=== PATIENT | female | born 1965 | race Caucasian/White ===

== ENCOUNTER 2016-04-03 21:08 | Emergency (ER) | payer BC ==
[~2016-04-03] VITALS: Ht 165.1 cm; Wt 86.2 kg
[~2016-04-03 21:08] MED LIST: ALBUTEROL0.09 MG/A1 IH; APAP/BUTALBITAL1 TA1 PO; ASPIR 8181 MG PO; BENADRYL 25MG C25 MG PO; BLACK COHOSH40 M1 PO; BYETTA250 MCG/ML SC; CLARITIN 10MG T10 MG PO; Ceftriaxone 1 Gm1 GM IV; DOXYCYCLINE HY100 M3 PO; ESCITALOPRAM10 MG PO; FIORICET 325 MG1 TAB PO; FLEXERIL10 M1 PO; GABAPENTIN100 MG PO; IBU800 M1 PO; INSULIN GL100 UNITS/ SC; LEXAPRO 10 MG T10 MG PO; LISINOPRIL 10MG10 MG PO; LISINOPRIL/HCTZ1 TA3 PO; LYRICA75 MG PO; MEPEREDINE50 MG PO; METFORMIN 500M500 MG PO; METFORMIN HCL1000 MG PO; MOBIC7.5 MG PO; NATURE'S BLEND160 MG PO; NORCO 325 MG-51 TAB PO; NOVOLIN 70/30 710 ML SC; NOVOLOG MIX 70/10 M1 SC; NOVOLOG100 U/ML SC; PANTOPRAZOLE SO40 MG PO; PHENERGAN25 M3 PO; PRAVASTATIN 20M20 MG PO; PREMARIN 0.60.625 MG PO; PROTONIX 40MG T40 MG PO; REGLAN10 M1 PO; REMIFEMIN OR; ROBAXIN 500 MG500 MG PO; SIMVASTATIN20 MG PO; TOPIRAMATE 25MG25 MG PO; TORADOL10 M2 PO; TRAMADOL 50MG T50 MG PO; ZANTAC 300300 MG PO; ZOFRAN ODT4 MG PO; ZOFRAN4 MG PO; ZYRTEC 10MG TAB10 MG PO; [UNRECOGNIZED DRUG - OTHER] PO
[2016-04-03] MEDS ORDERED: JANUMET XR 10001 TE1 PO (21:20)
[2016-04-03] MEDS ORDERED: DICYCLOMINE HCL20 MG PO (21:21)
[2016-04-03] MEDS ORDERED: ESTRACE 2MG. TAB2 MG PO (21:22)
[2016-04-03] MEDS ORDERED: TROKENDI XR50 MG PO (21:22)
[2016-04-03] MEDS ORDERED: VITAMIN D310000 UNIT PO (21:23)
[2016-04-03] MEDS ORDERED: PROMETH-CODEIN 65 ML PO (21:25)
[2016-04-03] MEDS ORDERED: PREDNISONE 20MG20 MG PO (21:25)
[2016-04-03] MEDS ORDERED: LEVAQUIN500 MG PO (21:25)
--- NOTE | 2016-04-03 22:50 | Emergency Room Report ---
History of Present Illness Time Seen by [id number] Presenting Problem in Triage Pt arrived:Walked Presenting Problem:PT STATES THAT SHE HAS HAD A COUGH AND CONGESTION FOR ABOUT 3 WEEKS. PT STATES SHE WENT TO [facility] ON 03/31/16. PT IS CURRENTLY ON LEVAQUIN AND PREDNIESONE. PT HAS NOT SEEN PCP. 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 N Clinical Suspician of Infection? N Mental Status: 1 - Regular (Normal Baseline) Sepsis Risk:Low Sepsis Risk Have you (or family members/close friends) recently traveled outside the [place]? N If Yes, where/when: Have you had exposure to infectious disease within the past month? N TB? Other? 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 over the last 2 weeks has been on septra and now levoquin Cardiac Chest Pain Chest pain indicative of cardiac No Timing/Duration this evening Severity moderate ALLERGIES Coded Allergies: adhesive tape (Intermediate, I-RASH 04/03/16) bupropion (Intermediate, I-HIVES 04/03/16) butorphanol (Intermediate, I-HIVES 04/03/16) calcium (From DHEA) (Intermediate, I-HIVES 04/03/16) calcium carbonate (From DHEA) (Intermediate, I-HIVES 04/03/16) codeine (Intermediate, I-HIVES 04/03/16) hydromorphone (Intermediate, I-HIVES 04/03/16) prasterone (DHEA) (From DHEA) (Intermediate, I-HIVES 04/03/16) sumatriptan (From IMITREX) (Intermediate, I-HIVES 04/03/16) hydrocodone (I-ITCHING 04/03/16) morphine (HEADACHE 04/03/16) ranitidine (I-ITCHING 04/03/16) Home Medications Active Scripts INSULIN ASPART PROTAM & ASPART (Novolog Mix 70-30 Vial) 20 UNITS SC QAM #1 Vial Ref 2 Prov: 01/19/15 Reported Medications Pantoprazole Sodium (Protonix 40MG TAB) 40 MG PO DAILY Pregabalin (Lyrica 75MG) 150 MG PO TID SITAGLIPTIN PHOS/METFORMIN HCL (Janumet XR 50-1,000 MG Tablet) 1 TER PO DAILY #90 Dicyclomine Hcl (Dicyclomine) 20 MG PO AC #270 Topiramate (Trokendi XR) 50 MG PO DAILY #30 Estradiol (Estrace 2MG. Tablet) 2 MG PO DAILY #30 Cholecalciferol (Vitamin D3) (Vitamin D3) 10,000 UNIT PO WEEKLY Levofloxacin (Levaquin 500MG) 500 MG PO DAILY Promethazine HCl/Codeine (Prometh-Codein 6.25-10 MG/5 Ml) 5 ML PO Q6HP PRN COUGH Prednisone (Prednisone 20MG) 20 MG PO DAILY Simvastatin 20 MG PO QHS Escitalopram Oxalate (Lexapro 10MG) 10 MG PO QHS Loratadine (Claritin 10MG) 10 MG PO DAILY INSULIN GLARGINE (Lantus 3ML Solostar Pen) 30 UNITS SC QHS History Medical History General CAD? No Angina: Yes [place]: No Hypertension? Yes Hyperlipidemia? No CHF? No DVT? No PE? No COPD? Yes Asthma? Yes Anemia? No GERD? No Gastric ulcers? No GI Bleed? No Hernia? No Thyroid Problems? No Hypothyroidism? No CVA? No Seizures? No Diabetes? Yes Insulin Dependent: Yes Insulin Pump: No Home FSBS? Yes Renal Insuffiency? No End Stage Renal Disease? No UTI? No Stones? No BPH? No GB Disease: No Nephritic Syndrome? No Asplenia? No Hepatitis? No Sickle Cell Disease? No Arthritis? Yes Migraines? No Cataracts? No Glaucoma? No MRSA? No HIV? No TB? No Anxiety? No Depression? No Cancer? No More? No Immunization Hx DT/Tetanus 1-4 Years Ago Flu 2015-16FSN Pneumonia Refuses Surgical Hx Previous Surgery?Y C SECTION X 2 CARPATUNNEL BILAT. 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 Respiratory cough, denies shortness of breath, denies wheezing Cardiovascular see HPI, chest pain, denies syncope Gastrointestinal denies abdominal pain, denies diarrhea, denies vomiting Genitourinary denies: dysuria, frequency, hesitancy, hematuria. Musculoskeletal denies back pain, denies joint pain, denies joint swelling, denies neck pain Skin denies rash Psychiatric/Neurological denies headache, denies seizure Physical Exam Vital Signs Vital Signs Date Time Temp Pulse Resp B/P Pulse O2 O2 Flow FiO2 Ox Delivery Rate 04/04 0034 102 18 142/75 95 / 2212 87 18 157/71 96 / 2144 91 18 154/56 100 / 2112 98.3 92 18 159/91 100 - WBC >12,000 or <4,000 or 10% bands? 2 or more SIRS Criteria Met? B/P:157/71 MAP:113 Creatinine >2.0? UA output<0.5ml/kg/hr for 2 hrs? Platelet count >100,000? Lactate >2.0mmol/1? INR >1.2 or PTT > than 60 sec? Evidence of Organ Dysfunction? Provider documented clinical suspician of infection? N Sepsis Criteria Count: 1 Sepsis Risk: Low Sepsis Risk General Appearance no apparent distress Eye Exam - bilateral eye PERRL, bilateral eye EOMI Ear, Nose, Throat normal ENT inspection Neck supple Respiratory Status No: respiratory distress. Lung Sounds bilateral: rhonchi. 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 No Results/Orders Laboratory Tests 04/04/16 0047: Influenza Type A Ag NOT DETECTED, Influenza Type B Ag NOT DETECTED 04/04/16 0000: B-Natriuretic Peptide 18 04/03/16 2305: Sodium 134 L, Potassium 4.5, Chloride 101, Carbon Dioxide 26, BUN 12, Creatinine 1.1 H, Estimated Creat Clear 84, Estimated GFR (MDRD) 53 L, Glucose 267 H, Calcium 8.5, Total Bilirubin 0.2, AST 28, ALT 19, Alkaline Phosphatase 85, Creatine Kinase 62, CK-MB (CK-2) Rel Index 0.8, CK and CKMB Interp 0.5, Troponin I < 0.02, Total Protein 6.6, Albumin 2.7 L, Globulin 3.9 H, Albumin/ Globulin Ratio 0.7 L, WBC 8.8, RBC 4.68, Hgb 14.5, Hct 42.6, MCV 91.0, RDW 15.2 , Plt Count 263, MPV 8.5, Gran % 59.5, Gran # 5.2, Lymphocytes % 30.7, Monocytes % 3.9, Eosinophils % 5.4, Basophils % 0.5, Lymphocytes # 2.7, Monocytes # 0.3, Eosinophils # 0.5 H, Basophils # 0.0, PUBS MCHC 34.2, MCH 31.1 Current Medication Orders Sig/Hasmukh Start time Last Medication Dose Route Stop Time Status Admin Albuterol 2 PUFFS ONCE ONE 04/04 0100 DC 04/04 IH 04/04 010 0055 Miscellaneous 1 UNIT ONCE ONE 04/04 0100 DC 04/04 XX 04/04 0101 0058 Albuterol 0 .STK-MED ONE 04/04 0051 DC IH Miscellaneous 0 .STK-MED ONE 04/04 0051 DC XX Albuterol 0 .STK-MED ONE 04/03 2358 DC INH Albuterol 2.5 MG ONCE ONE 04/03 2345 DC 04/03 INH 04/03 2346 2359 Furosemide 40 MG ONCE ONE 04/03 2300 DC 04/03 IV 04/03 2301 2311 Sodium Chloride 10 ML PRN PRN 04/03 2300 AC 04/03 IV 04/04 2250 2311 Furosemide 0 .STK-MED ONE 04/03 2253 DC .ROUTE Orders Procedure Date/time Status RT REQUEST ALBUTEROL INHALER 04/04 45 Active INFLUENZA A&B ANTIGENS 01/03 0046 Complete BRAIN NATRIURETIC PEPTIDE 04/04 0028 Complete RT REQUEST ALBUTEROL NEB 04/03 2346 Active IV SALINE LOCK 04/03 2251 Active COMPLETE METABOLIC PANEL 04/03 225 Complete CBC WITH AUTO DIFF 04/03 2250 Complete CARDIAC ENZYMES 04/03 2250 Complete CHEST(2 VIEWS-NOT PORTABLE) 04/03 2126 Active XRAY/CT/US XRAY/CT/US XRAY chest XR interpretation by reviewed by me Xray Results abnormal (nonspecific) Departure Departure Time of Disposition 37 Disposition DC Home or Self Care(routine) Clinical Impression Primary Impression: Bronchitis Condition STABLE Referrals Kai Lindsay MD (Family) Patient Instructions DI for Cough -- Adult Additional Instructions use meds and see pcp for follow up Discharge Counseling Counseled pt/family regarding diagnosis, test results, medications/RX, follow up needs Prescriptions Current Visit Scripts BENZONATATE (Benzonatate) 100 MG PO TID #15 CAP Azithromycin (Zithromycin (Z-KAUR) 250MG Tab) 250 MG PO DAILY #6 TAB TAKE TWO (2) TABLETS ON DAY 1, THEN ONE (1) TABLET DAY #2 THRU #5 ED Critical Care Critical Care No at 0127
--- NOTE | 2016-04-03 22:50 | Emergency Room Report ---
History of Present Illness Time Seen by [id number] Presenting Problem in Triage Pt arrived:Walked Presenting Problem:PT STATES THAT SHE HAS HAD A COUGH AND CONGESTION FOR ABOUT 3 WEEKS. PT STATES SHE WENT TO [facility] ON 03/31/16. PT IS CURRENTLY ON LEVAQUIN AND PREDNIESONE. PT HAS NOT SEEN PCP. 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 N Clinical Suspician of Infection? N Mental Status: 1 - Regular (Normal Baseline) Sepsis Risk:Low Sepsis Risk Have you (or family members/close friends) recently traveled outside the [place]? N If Yes, where/when: Have you had exposure to infectious disease within the past month? N TB? Other? 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 has been on septra and now levoquin Cardiac Chest Pain Chest pain indicative of cardiac No Timing/Duration this evening Severity moderate ALLERGIES Coded Allergies: adhesive tape (Intermediate, I-RASH 04/03/16) bupropion (Intermediate, I-HIVES 04/03/16) butorphanol (Intermediate, I-HIVES 04/03/16) calcium (From DHEA) (Intermediate, I-HIVES 04/03/16) calcium carbonate (From DHEA) (Intermediate, I-HIVES 04/03/16) codeine (Intermediate, I-HIVES 04/03/16) hydromorphone (Intermediate, I-HIVES 04/03/16) prasterone (DHEA) (From DHEA) (Intermediate, I-HIVES 04/03/16) sumatriptan (From IMITREX) (Intermediate, I-HIVES 04/03/16) hydrocodone (I-ITCHING 04/03/16) morphine (HEADACHE 04/03/16) ranitidine (I-ITCHING 04/03/16) Home Medications Active Scripts INSULIN ASPART PROTAM & ASPART (Novolog Mix 70-30 Vial) 20 UNITS SC QAM #1 Vial Ref 2 Prov: 01/19/15 Reported Medications Pantoprazole Sodium (Protonix 40MG TAB) 40 MG PO DAILY Pregabalin (Lyrica 75MG) 150 MG PO TID SITAGLIPTIN PHOS/METFORMIN HCL (Janumet XR 50-1,000 MG Tablet) 1 TER PO DAILY #90 Dicyclomine Hcl (Dicyclomine) 20 MG PO AC #270 Topiramate (Trokendi XR) 50 MG PO DAILY #30 Estradiol (Estrace 2MG. Tablet) 2 MG PO DAILY #30 Cholecalciferol (Vitamin D3) (Vitamin D3) 10,000 UNIT PO WEEKLY Levofloxacin (Levaquin 500MG) 500 MG PO DAILY Promethazine HCl/Codeine (Prometh-Codein 6.25-10 MG/5 Ml) 5 ML PO Q6HP PRN COUGH Prednisone (Prednisone 20MG) 20 MG PO DAILY Simvastatin 20 MG PO QHS Escitalopram Oxalate (Lexapro 10MG) 10 MG PO QHS Loratadine (Claritin 10MG) 10 MG PO DAILY INSULIN GLARGINE (Lantus 3ML Solostar Pen) 30 UNITS SC QHS History Medical History General CAD? No Angina: Yes [place]: No Hypertension? Yes Hyperlipidemia? No CHF? No DVT? No PE? No COPD? Yes Asthma? Yes Anemia? No GERD? No Gastric ulcers? No GI Bleed? No Hernia? No Thyroid Problems? No Hypothyroidism? No CVA? No Seizures? No Diabetes? Yes Insulin Dependent: Yes Insulin Pump: No Home FSBS? Yes Renal Insuffiency? No End Stage Renal Disease? No UTI? No Stones? No BPH? No GB Disease: No Nephritic Syndrome? No Asplenia? No Hepatitis? No Sickle Cell Disease? No Arthritis? Yes Migraines? No Cataracts? No Glaucoma? No MRSA? No HIV? No TB? No Anxiety? No Depression? No Cancer? No More? No Immunization Hx DT/Tetanus 1-4 Years Ago Flu 2015-16FSN Pneumonia Refuses Surgical Hx Previous Surgery?Y C SECTION X 2 CARPATUNNEL BILAT. 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 Respiratory cough, denies shortness of breath, denies wheezing Cardiovascular see HPI, chest pain, denies syncope Gastrointestinal denies abdominal pain, denies diarrhea, denies vomiting Genitourinary denies: dysuria, frequency, hesitancy, hematuria. Musculoskeletal denies back pain, denies joint pain, denies joint swelling, denies neck pain Skin denies rash Psychiatric/Neurological denies headache, denies seizure Physical Exam Vital Signs Vital Signs Date Time Temp Pulse Resp B/P Pulse O2 O2 Flow FiO2 Ox Delivery Rate 04/04 0034 102 18 142/75 95 / 2212 87 18 157/71 96 / 2144 91 18 154/56 100 / 2112 98.3 92 18 159/91 100 - WBC >12,000 or <4,000 or 10% bands? 2 or more SIRS Criteria Met? B/P:157/71 MAP:113 Creatinine >2.0? UA output<0.5ml/kg/hr for 2 hrs? Platelet count >100,000? Lactate >2.0mmol/1? INR >1.2 or PTT > than 60 sec? Evidence of Organ Dysfunction? Provider documented clinical suspician of infection? N Sepsis Criteria Count: 1 Sepsis Risk: Low Sepsis Risk General Appearance no apparent distress Eye Exam - bilateral eye PERRL, bilateral eye EOMI Ear, Nose, Throat normal ENT inspection Neck supple Respiratory Status No: respiratory distress. Lung Sounds bilateral: rhonchi. 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 No Results/Orders Laboratory Tests 04/04/16 0047: Influenza Type A Ag NOT DETECTED, Influenza Type B Ag NOT DETECTED 04/04/16 0000: B-Natriuretic Peptide 18 04/03/16 2305: Sodium 134 L, Potassium 4.5, Chloride 101, Carbon Dioxide 26, BUN 12, Creatinine 1.1 H, Estimated Creat Clear 84, Estimated GFR (MDRD) 53 L, Glucose 267 H, Calcium 8.5, Total Bilirubin 0.2, AST 28, ALT 19, Alkaline Phosphatase 85, Creatine Kinase 62, CK-MB (CK-2) Rel Index 0.8, CK and CKMB Interp 0.5, Troponin I < 0.02, Total Protein 6.6, Albumin 2.7 L, Globulin 3.9 H, Albumin/ Globulin Ratio 0.7 L, WBC 8.8, RBC 4.68, Hgb 14.5, Hct 42.6, MCV 91.0, RDW 15.2 , Plt Count 263, MPV 8.5, Gran % 59.5, Gran # 5.2, Lymphocytes % 30.7, Monocytes % 3.9, Eosinophils % 5.4, Basophils % 0.5, Lymphocytes # 2.7, Monocytes # 0.3, Eosinophils # 0.5 H, Basophils # 0.0, PUBS MCHC 34.2, MCH 31.1 Current Medication Orders Sig/Hasmukh Start time Last Medication Dose Route Stop Time Status Admin Albuterol 2 PUFFS ONCE ONE 04/04 0100 DC 04/04 IH 04/04 010 0055 Miscellaneous 1 UNIT ONCE ONE 04/04 0100 DC 04/04 XX 04/04 0101 0058 Albuterol 0 .STK-MED ONE 04/04 0051 DC IH Miscellaneous 0 .STK-MED ONE 04/04 0051 DC XX Albuterol 0 .STK-MED ONE 04/03 2358 DC INH Albuterol 2.5 MG ONCE ONE 04/03 2345 DC 04/03 INH 04/03 2346 2359 Furosemide 40 MG ONCE ONE 04/03 2300 DC 04/03 IV 04/03 2301 2311 Sodium Chloride 10 ML PRN PRN 04/03 2300 AC 04/03 IV 04/04 2250 2311 Furosemide 0 .STK-MED ONE 04/03 2253 DC .ROUTE Orders Procedure Date/time Status RT REQUEST ALBUTEROL INHALER 04/04 45 Active INFLUENZA A&B ANTIGENS 01/03 0046 Complete BRAIN NATRIURETIC PEPTIDE 04/04 0028 Complete RT REQUEST ALBUTEROL NEB 04/03 2346 Active IV SALINE LOCK 04/03 2251 Active COMPLETE METABOLIC PANEL 04/03 225 Complete CBC WITH AUTO DIFF 04/03 2250 Complete CARDIAC ENZYMES 04/03 2250 Complete CHEST(2 VIEWS-NOT PORTABLE) 04/03 2126 Active XRAY/CT/US XRAY/CT/US XRAY chest XR interpretation by reviewed by me Xray Results abnormal (nonspecific) Departure Departure Time of Disposition 37 Disposition DC Home or Self Care(routine) Clinical Impression Primary Impression: Bronchitis Condition STABLE Referrals Kai Lindsay MD (Family) Patient Instructions DI for Cough -- Adult Additional Instructions use meds and see pcp for follow up Discharge Counseling Counseled pt/family regarding diagnosis, test results, medications/RX, follow up needs Prescriptions Current Visit Scripts BENZONATATE (Benzonatate) 100 MG PO TID #15 CAP Azithromycin (Zithromycin (Z-KAUR) 250MG Tab) 250 MG PO DAILY #6 TAB TAKE TWO (2) TABLETS ON DAY 1, THEN ONE (1) TABLET DAY #2 THRU #5 ED Critical Care Critical Care No at 0127
[2016-04-03 23:12] LABS: LYMPH # 2.7 K/mm3 (0.7-4.5); LYMPH % 30.7 % (10-50.0)
[2016-04-03 23:15] LABS: HEMOGLOBIN 14.5 g/dL (12.2-16.2)
[2016-04-03 23:37] LABS: BUN 12 mg/dL (7-18)
[2016-04-03 23:38] LABS: GFR (ESTIMATED) 53 ML/MIN (59-)
[2016-04-04] MEDS ORDERED: TESSALON PERLE100 MG PO (01:27)
[2016-04-04] MEDS ORDERED: ZITHROMAX Z PA250 MG PO (01:27)
[2016-04-04 01:37] VITALS: BP 142/75
--- NOTE | 2016-04-04 08:29 | RADIOLOGY REPORT PS360 ---
CHEST(2 VIEWS-NOT PORTABLE) HISTORY: COUGH, CONGESTION COMPARISON: 01/18/2015 FINDINGS: The cardiomediastinal silhouette and pulmonary vascularity are within normal limits. The lungs are clear without infiltrates, suspicious nodules, or pleural effusions. No acute bony abnormalities. IMPRESSION: Negative chest, no acute finding
== END 2016-04-04 01:38 | disposition home or self-care (01) ==
LOC: ER 21:08
PROVIDERS: Emergency Medicine
DX: J20.9 Acute bronchitis, unspecified (principal); I10 Essential (primary) hypertension; E11.65 Type 2 diabetes mellitus with hyperglycemia; Z79.4 Long term (current) use of insulin

== ENCOUNTER → 2016-07-17 | Outpatient (CLI) | payer BC ==
[~2016-07-17] MED LIST changes: +DICYCLOMINE HCL20 MG PO; +ESTRACE 2MG. TAB2 MG PO; +JANUMET XR 10001 TE1 PO; +LEVAQUIN500 MG PO; +PREDNISONE 20MG20 MG PO; +PROMETH-CODEIN 65 ML PO; +TESSALON PERLE100 MG PO; +TROKENDI XR50 MG PO; +VITAMIN D310000 UNIT PO; +ZITHROMAX Z PA250 MG PO
[2016-07-17 12:15] LABS: HEMOGLOBIN 13.7 g/dL (12.2-16.2); LYMPH # 2.3 K/mm3 (0.7-4.5); LYMPH % 37.9 % (10-50.0)
[2016-07-17 13:35] LABS: BUN 17 mg/dL (7-18)
[2016-07-17 13:41] LABS: GFR (ESTIMATED) 67 ML/MIN (59-)
--- NOTE | 2016-07-17 17:05 | RADIOLOGY REPORT PS360 ---
PROCEDURE: 2-D M-mode and color Doppler study INDICATIONS FOR THE TEST: Chest pain COPD Heart Murmur Tobacco Smoking Palpitations Fatigue+ Syncope Edema Hypertension Diabetes Mellitus+ Rheumatic Fever SOB+MITCHELL+Obesity+Hyperlipidemia+ Family History HD+ Additional History Dizziness, asthma PATIENT INFORMATION HEIGHT: 65 WEIGHT: 220 GENDER: Female B/P: 155/93 2-D/M-MODE INTERPRETATION: 2-D MEASUREMENTS OBSERVED VALUES IN CMS Right Ventricular Dimension (RVDd) 2.5 Interventricular Septum (Thickness)(IVsd) 1.0 Left Ventricular Internal Dimensions(LVIDd) 4.1 Left Ventricular Posterior Wall (Thickness)(LVPWd) 1.0 Aortic Root 2.0 Aortic Cusp Separation 2.0 Left Atrial Dimensions (LAD) 3.9 2D 1. Left atrium is mildly enlarged, left ventricle is normal size, there is no concentric left ventricular hypertrophy, visually estimated ejection fraction 55% with no obvious regional wall motion abnormality. 2. The right atrium and right ventricle are normal size and contractility. 3. The aortic, mitral and tricuspid valve is structurally normal. 4. The pulmonic valve is not well visualized. 5. No significant pericardial effusion noted. DOPPLER INTERROGATION: Doppler interrogation of the aortic mitral and tricuspid valvular presence of trace mitral and tricuspid regurgitation. Tricuspid regurgitant jet velocity insufficient for acquisition of the right ventricular systolic pressure. Grade 1 diastolic dysfunction seen without tissue Doppler evidence of raised left atrial pressure CONCLUSION: 1. Mildly enlarged left atrium, normal left ventricular size, visually estimated ejection fraction 55% with no obvious regional wall motion abnormality, there is no concentric left ventricular hypertrophy present. Grade 1 diastolic dysfunction seen without Doppler evidence of raised left atrial pressure. 2. Trace mitral and tricuspid regurgitation. 3. No significant pericardial effusion noted.
[2016-07-18 08:41] LABS: Vitamin D, 25-Hydroxy 25.7 ng/mL (30.0-100.0)
[2016-07-18 09:37] LABS: Creatinine, Urine 100.5 mg/dL (Not Estab.)
== END ==
LOC: RT 11:07
PROVIDERS: Nurse Practitioner Family
DX: R60.9 Edema, unspecified (principal); E55.9 Vitamin D deficiency, unspecified; E53.8 Deficiency of other specified B group vitamins; E11.42 Type 2 diabetes mellitus with diabetic polyneuropathy